=== PATIENT | male | born 1995 | race Caucasian/White ===

== ENCOUNTER 2019-04-24 09:47 | Emergency (ER) | payer BC ==
[2019-04-24] MEDS ORDERED: LoraTADine TAB(NF) 10 MG TAB (AUTOSUB to CETIRIZINE) PO ONE (10:15)
[2019-04-24] MEDS ORDERED: Famotidine TAB* 20 MG PO ONE (10:16)
--- NOTE | 2019-04-24 10:18 | ED ---
Allergic Reaction/Systemic - HPI Summary HPI Summary: This pt is a 24 y/o male presenting to [facility] referred by Urgent Care c/o diffuse rash s/p bee sting at 07:30 today. Pt reports he had bee stings to bilateral legs. He notes he felt well but suddenly began to feel pruritic. He went to Urgent Care today and was given steroids and Benadryl at about 08:45-09: 00. Pt presents with diffuse rash described as red and pruritic involving his arms, legs, chest. Denies SOB, difficulty breathing, tongue swelling, throat swelling, facial swelling. Pt has had bee stings in the past but has not had allergic reactions to them. - History of Current Complaint Chief Complaint: EDAllergicReaction Time Seen by Provider: 04/24/19 09:58 Hx Obtained From: Patient Onset/Duration: Started hours ago, Still Present Timing: Lasting Hours Severity Currently: Moderate Pain Intensity: 4 - bilateral pain Pain Scale Used: 0-10 Numeric Location: Diffuse Character: Pruritus Aggravating Factor(s): Nothing Alleviating Factor(s): Nothing Associated Signs And Symptoms: Positive: Rash. Negative: Difficulty Breathing, Throat Tightening, Vomiting - Allergies/Home Medications Allergies/Adverse Reactions: Allergies Allergy/AdvReac Type Severity Reaction Status Date / Time bee venom protein (honey bee) Allergy Rash Verified 04/24/19 09:53 PMH/Surg Hx/FS Hx/Imm Hx Endocrine/Hematology History: Denies: Hx Diabetes Cardiovascular History: Denies: Hx Hypertension Infectious Disease History: No Infectious Disease History: Denies: Traveled Outside the [place] in Last 30 Days - Family History Known Family History: Positive: Non-Contributory - Social History Alcohol Use: Occasionally Substance Use Type: Reports: None Smoking Status (MU): Never Smoked Tobacco Review of Systems Negative: Fever Negative: Other - NEGATIVE: tongue swelling, throat swelling, facial swelling Negative: Shortness Of Breath Positive: Rash All Other Systems Reviewed And Are Negative: Yes Physical Exam - Summary Physical Exam Summary: Constitutional: Well-developed, Well-nourished, Alert. (-) Distressed Skin: Warm, Dry. Diffuse erythematous maculopapular rash in the trunk, arms, spreading and affecting the superior chest wall, diffuse in legs, neck, and arms. HENT: Normocephalic; Atraumatic. Face with no swelling. No swelling of the tongue or throat. Eyes: Conjunctiva normal Neck: Musculoskeletal ROM normal neck. (-) JVD, (-) Stridor, (-) Tracheal deviation Cardio: Rhythm regular, rate normal, Heart sounds normal; Intact distal pulses; The pedal pulses are 2+ and symmetric. Radial pulses are 2+ and symmetric. (-) Murmur Pulmonary/Chest wall: Effort normal. (-) Respiratory distress, (-) Wheezes, (-) Rales. No stridor. Breathing comfortable. Tolerating secretions. Abd: Soft, (-) tenderness, (-) Distension, (-) Guarding, (-) Rebound Musculoskeletal: (-) Edema Lymph: (-) Cervical adenopathy Neuro: Alert, Oriented x3 Psych: Mood and affect Normal Triage Information Reviewed: Yes Vital Signs On Initial Exam: Initial Vitals Temp Pulse Resp BP Pulse Ox 97.7 F 82 18 102/64 100 04/24/19 09:51 04/24/19 09:51 04/24/19 09:51 04/24/19 09:51 04/24/19 09:51 Vital Signs Reviewed: Yes Diagnostics - Vital Signs Vital Signs Temp Pulse Resp BP Pulse Ox 04/24/19 09:51 97.7 F 82 18 102/64 100 - Laboratory Lab Statement: Any lab studies that have been ordered have been reviewed, and results considered in the medical decision making process. Re-Evaluation - Re-Evaluation First Eval Re-Evaluation Time: 12:31 Change: Improved Comment: Pt is feeling better. He will be discharged home. Allergic Reaction Course/Dx - Course Assessment/Plan: Pt is a 24 y/o male presenting to [facility] referred by Urgent Care c/o diffuse rash s/p bee stings to bilateral legs at 07:30 today. He went to Urgent Care today and was given steroids and Benadryl at about 08:45-09:00. Pt presents with diffuse rash described as red and pruritic involving his arms, legs, chest. In the ED course the pt was given Claritin, Pepcid, Cetirizine. On re-evaluation pt is feeling better. He will be discharged home with follow up from his PCP. Pt will be discharged home with follow up from [facility]. He was given prescriptions for epi pen, Claritin and prednisone. - Diagnoses Provider Diagnoses: Allergic reaction, Urticaria Discharge - Sign-Out/Discharge Documenting (check all that apply): Patient Departure - Discharge home Patient Received Moderate/Deep Sedation with Procedure: No - Discharge Plan Condition: Stable Disposition: HOME Prescriptions: EPINEPHrine [Epipen 2-Anthony] 0.3 mg IM ONCE PRN #1 inj PRN Reason: Sob/Wheezing Loratadine [Claritin] 10 mg PO DAILY #10 capsule predniSONE [Prednisone 20 MG TAB] 40 mg PO DAILY 5 Days #10 tablet Patient Education Materials: Urticaria (ED), Insect Bite or Sting (ED), General Allergic Reaction (ED) Print Language: MALTESE Referrals: [facility] [Outside] No Primary Care Phys,NOPCP [Primary Care Provider] - - Billing Disposition and Condition Condition: STABLE Disposition: Home - Attestation Statements Document Initiated by Spenseribe: Yes Documenting Scribe: Inez Camarena Provider For Whom Miguele is Documenting (Include Credential): Adeline Cat MD Scribe Attestation: Inez Briseno, scribed for Adeline Soler MD on 04/24/19 at 1842. Scribe Documentation Reviewed: Yes Provider Attestation: The documentation as recorded by the Inez rowell accurately reflects the service I personally performed and the decisions made by me, Adeline Soler MD Status of Scribe Document: Viewed
[2019-04-24] MEDS ORDERED: Cetirizine* 10 MG TAB PO ONE (11:00)
[2019-04-24 13:16] VITALS: BP 107/69
== END 2019-04-24 13:16 | disposition home or self-care (01) ==
LOC: ED 09:47
DX: T78.40XA Allergy, unspecified, initial encounter (principal); L50.9 Urticaria, unspecified; X58.XXXA Exposure to other specified factors, initial encounter; Y92.9 Unspecified place or not applicable
CPT/HCPCS: 99283; A9270-GY